=== PATIENT | female | born 1985 | race African-American/Black ===

== ENCOUNTER 2017-06-23 00:05 | Emergency (ER) | payer MEDICAID ==
[~2017-06-23] VITALS: Ht 167.6 cm; Wt 54.5 kg
[~2017-06-23 00:05] MED LIST: ALPR0.255 PO; TYL2 PO; [UNRECOGNIZED DRUG - CODE]
[2017-06-23 01:07] LABS: APPEARANCE,URINE CLOUDY (CLEAR); GLUCOSE, URINE (UA) NEGATIVE (NEGATIVE); KETONES,URINE TRACE mg/dL (NEGATIVE); LEUKOCYTE ESTERASE ,URINE LARGE (NEGATIVE); OCCULT BLOOD,URINE LARGE (NEGATIVE); PH,URINE 6.5 (5.0-8.0); PROTEIN,URINE SEE CONFIRM (NEGATIVE)
[2017-06-23 01:09] LABS: ADD UA MICROSCOPIC YES
[2017-06-23 01:27] LABS: SULFOSALICYLIC ACID,URINE 2+ (Negative)
[2017-06-23 01:28] LABS: RBC,URINE 26-50 /HPF (0-2)
[2017-06-23 04:14] VITALS: BP 136/87
[2017-06-23] MEDS ORDERED: ACETAMINOPHEN/CODEINE 300-30 MG TABLET PO ONE (04:15)
[2017-06-23] MEDS ORDERED: CEPHALEXIN MONOHYDRATE 500 MG CAPSULE PO ONE (04:15)
[2017-06-23] MEDS ORDERED: PHENAZOPYRIDINE HCL 100 MG TABLET PO ONE (04:15)
== END 2017-06-23 04:45 | disposition home or self-care (01) ==
LOC: EMS 00:06
DX: N30.91 Cystitis, unspecified with hematuria (principal); N94.6 Dysmenorrhea, unspecified
CPT/HCPCS: 87086; 99284